=== PATIENT | female | born 1995 | race Two or more races ===

== ENCOUNTER 2020-07-09 11:45 | Outpatient (CLI) | payer OTHER | END 2020-07-09 12:29 | disposition home or self-care (01) | LOC: NST 11:45 | PROVIDERS: ATTEND Obstetrics & Gynecology Maternal & Fetal Medicine | DX: Z34.83 Encounter for supervision of other normal pregnancy, third trimester (principal) ==

== ENCOUNTER 2020-08-22 01:48 | Inpatient (IN) | payer OTHER ==
[~2020-08-22] VITALS: Ht 157.5 cm; Wt 55.3 kg
[2020-08-22] MEDS ORDERED: PRENATAL TABLE1 EAC2 PO (02:21)
[2020-08-22] MEDS ORDERED: IRON240 MG PO (02:22)
[2020-08-24] MEDS ORDERED: Procardia Xl 30MG TA PO (08:23)
== END 2020-08-24 11:09 | disposition home or self-care (01) | DRG 833 ==
LOC: LDR 01:48 → OB/GYN 08-23 09:32
PROVIDERS: ADMIT Obstetrics & Gynecology; ATTEND Obstetrics & Gynecology
PROC: 4A1HXCZ Monitoring of Products of Conception, Cardiac Rate, External Approach (ICD-10-PCS; principal; 2020-08-22)
PROC: BY4FZZZ Ultrasonography of Third Trimester, Single Fetus (ICD-10-PCS; 2020-08-22)
DX: O60.03 Preterm labor without delivery, third trimester (principal); O32.1XX0 Maternal care for breech presentation, not applicable or unspecified; Z20.828 Contact with and (suspected) exposure to other viral communicable diseases

== ENCOUNTER 2020-08-28 11:57 | Outpatient (CLI) | payer OTHER ==
[~2020-08-28 11:57] MED LIST: IRON240 MG PO; PRENATAL TABLE1 EAC2 PO; Procardia Xl 30MG TA PO
== END 2020-08-28 12:56 | disposition home or self-care (01) ==
LOC: NST 11:57
PROVIDERS: ATTEND Obstetrics & Gynecology Maternal & Fetal Medicine
DX: Z34.03 Encounter for supervision of normal first pregnancy, third trimester (principal)

== ENCOUNTER 2020-09-02 14:10 | Outpatient (CLI) | payer OTHER ==
[2020-09-03] MEDS ORDERED: PRENA1 TRUE CO1 EACH PO (11:07)
== END 2020-09-02 15:21 | disposition home or self-care (01) ==
LOC: NST 14:10
PROVIDERS: ATTEND Obstetrics & Gynecology Maternal & Fetal Medicine
DX: Z34.83 Encounter for supervision of other normal pregnancy, third trimester (principal)

== ENCOUNTER 2020-09-03 08:00 | Inpatient (IN) | payer OTHER ==
[~2020-09-03] VITALS: Ht 157.5 cm; Wt 2.3 kg
[2020-09-03] MEDS ORDERED: PRENA1 TRUE CO1 EACH PO (11:07)
== END 2020-09-07 19:46 | disposition home or self-care (01) | DRG 787 ==
LOC: O/R 09-04 06:20 → OB/GYN 09-04 06:20
PROVIDERS: ADMIT Obstetrics & Gynecology Maternal & Fetal Medicine; ATTEND Obstetrics & Gynecology Maternal & Fetal Medicine
PROC: 4A1HXFZ Monitoring of Products of Conception, Cardiac Rhythm, External Approach (ICD-10-PCS; 2020-09-04)
PROC: 10D00Z1 Extraction of Products of Conception, Low, Open Approach (ICD-10-PCS; principal; 2020-09-04 11:15)
DX: O64.1XX0 Obstructed labor due to breech presentation, not applicable or unspecified (principal); O41.03X0 Oligohydramnios, third trimester, not applicable or unspecified; Z3A.36 36 weeks gestation of pregnancy; Z37.0 Single live birth; Z20.828 Contact with and (suspected) exposure to other viral communicable diseases

== ENCOUNTER 2022-02-19 09:52 | Outpatient (CLI) | payer OTHER ==
[~2022-02-19 09:52] MED LIST changes: +PRENA1 TRUE CO1 EACH PO
== END 2022-02-19 10:57 | disposition home or self-care (01) ==
LOC: NST 09:52
PROVIDERS: ATTEND Obstetrics & Gynecology
DX: Z34.83 Encounter for supervision of other normal pregnancy, third trimester (principal)

== ENCOUNTER 2022-04-22 08:30 | Inpatient (IN) | payer OTHER ==
[~2022-04-22] VITALS: Ht 157.5 cm; Wt 2.7 kg
== END 2022-04-26 13:01 | disposition home or self-care (01) | DRG 788 ==
LOC: O/R 04-24 06:20 → OB/GYN 04-24 06:20 → SURG 04-24 07:00 → OB/GYN 04-24 09:12
PROVIDERS: ADMIT Obstetrics & Gynecology Maternal & Fetal Medicine; ATTEND Obstetrics & Gynecology Maternal & Fetal Medicine
PROC: 0DNW0ZZ Release Peritoneum, Open Approach (ICD-10-PCS; 2022-04-24)
PROC: 0UN90ZZ Release Uterus, Open Approach (ICD-10-PCS; 2022-04-24)
PROC: 4A1HXCZ Monitoring of Products of Conception, Cardiac Rate, External Approach (ICD-10-PCS; 2022-04-24)
PROC: 10D00Z1 Extraction of Products of Conception, Low, Open Approach (ICD-10-PCS; principal; 2022-04-24 07:00)
DX: O34.211 Maternal care for low transverse scar from previous cesarean delivery (principal); O99.891 Other specified diseases and conditions complicating pregnancy; N73.6 Female pelvic peritoneal adhesions (postinfective); Z3A.39 39 weeks gestation of pregnancy; Z37.0 Single live birth; Z20.822 Contact with and (suspected) exposure to COVID-19